=== PATIENT | male | born 1955 | race American Indian/Alaskan Native ===

== ENCOUNTER 2017-11-24 13:56 | Emergency (ER) | payer MEDICAID ==
[2017-11-24 14:01] VITALS: BP 113/75; PULSE 54; RESP 18; TEMP 97; O2SAT 99
[2017-11-24] MEDS ORDERED: Tdap Vaccine 0.5 ml Vial (10-64 yrs) IM ONE ×2 (14:03→14:10)
--- NOTE | 2017-11-24 14:39 | ED PDOC ---
HPI: General Adult Time Seen by Provider: 11/24/17 14:00 Chief Complaint (Nursing): Abnormal Skin Integrity Chief Complaint (Provider): Abnormal Skin Integrity History Per: Patient History/Exam Limitations: no limitations Current Symptoms Are (Timing): Still Present Additional Complaint(s): 62 year old male, right hand dominant, presents to the ED complaining of left index finger laceration after cutting an avocado at work. Patient is unsure of last tetanus vaccination. He states he applied antibiotic gel and gauze to cover wound prior to arrival. PMD: none Past Medical History Reviewed: Historical Data, Nursing Documentation, Vital Signs Vital Signs: Last Vital Signs Temp 97.0 F L 11/24/17 13:58 Pulse 54 L 11/24/17 13:58 Resp 18 11/24/17 13:58 BP 113/75 11/24/17 13:58 Pulse Ox 99 11/24/17 14:43 - Medical History PMH: No Chronic Diseases - Surgical History Surgical History: No Surg Hx - Family History Family History: States: Unknown Family Hx - Social History Current smoker - smoking cessation education provided: Yes (< 10 Cigarettes Daily) Alcohol: None Drugs: Denies - Allergies Allergies/Adverse Reactions: Allergies Allergy/AdvReac Type Severity Reaction Status Date / Time No Known Allergies Allergy Verified 11/24/17 13:58 Review of Systems ROS Statement: Except As Marked, All Systems Reviewed And Found Negative Skin: Positive for: Other (Left index finger laceration) Physical Exam - Reviewed Nursing Documentation Reviewed: Yes Vital Signs Reviewed: Yes - Physical Exam Appears: Positive for: Non-toxic, No Acute Distress Head Exam: Positive for: ATRAUMATIC, NORMOCEPHALIC Skin: Positive for: Normal Color, Warm, Dry Eye Exam: Positive for: Normal appearance Neck: Positive for: Normal, Painless ROM Cardiovascular/Chest: Negative for: Bradycardia, Tachycardia Respiratory: Negative for: Respiratory Distress Extremity: Positive for: Normal ROM, Other (2cm linear laceration to left lateral index finger) Neurologic/Psych: Positive for: Alert, Oriented. Negative for: Motor/Sensory Deficits - ECG O2 Sat by Pulse Oximetry: 99 (RA) Pulse Ox Interpretation: Normal Medical Decision Making Medical Decision Making: Initial Impression: Left index finger laceration Initial Plan: Tetanus 0.5mL IM Pt prefers conservative management and does not want to be sutured. Wound irrigated with 250 mL on NS - Dermabond and steri-stripped applied. Scribe Attestation: Documented by Néstor Hilliard acting as a scribe for Fabiola ROQUE. Provider Scribe Attestation: All medical record entries made by the Scribe were at my direction and personally dictated by me. I have reviewed the chart and agree that the record accurately reflects my personal performance of the history, physical exam, medical decision making, and the department course for this patient. I have also personally directed, reviewed, and agree with the discharge instructions and disposition. Disposition - Clinical Impression Clinical Impression: Tetanus toxoid vaccination administered at current visit - Disposition Disposition: Routine/Home Disposition Time: 15:16 Condition: STABLE Instructions: Laceration Repair With Glue (DC) Forms: [employer] ([place])
== END 2017-11-24 15:22 | disposition home or self-care (01) ==
LOC: H.ER 13:56
DX: S61.211A Laceration without foreign body of left index finger without damage to nail, initial encounter (principal); F17.210 Nicotine dependence, cigarettes, uncomplicated; W26.0XXA Contact with knife, initial encounter; Y93.G1 Activity, food preparation and clean up; Y99.0 Civilian activity done for income or pay; Z23 Encounter for immunization